=== PATIENT | female | born 1940 | race Caucasian/White ===

== ENCOUNTER → 2017-06-24 | Outpatient (CLI) | payer MEDICARE | END | disposition home or self-care (01) | LOC: PCVCCLINIC 14:24 | PROVIDERS: ATTEND Internal Medicine Cardiovascular Disease | DX: I10 Essential (primary) hypertension (principal); E78.00 Pure hypercholesterolemia, unspecified; R09.89 Other specified symptoms and signs involving the circulatory and respiratory systems; R01.1 Cardiac murmur, unspecified; R93.1 Abnormal findings on diagnostic imaging of heart and coronary circulation; Z87.891 Personal history of nicotine dependence; Z79.82 Long term (current) use of aspirin; Z79.899 Other long term (current) drug therapy | CPT/HCPCS: 80061; 93005; G0463 ==

== ENCOUNTER → 2017-07-24 | Outpatient (CLI) | payer MEDICARE | END | disposition home or self-care (01) | LOC: PCVCIMAG 13:22 | DX: I65.23 Occlusion and stenosis of bilateral carotid arteries (principal); I10 Essential (primary) hypertension; E83.59 Other disorders of calcium metabolism; R01.1 Cardiac murmur, unspecified; I08.3 Combined rheumatic disorders of mitral, aortic and tricuspid valves; R09.89 Other specified symptoms and signs involving the circulatory and respiratory systems | CPT/HCPCS: 93306; 93351; 93880 ==

== ENCOUNTER → 2018-04-27 | Outpatient (CLI) | payer MEDICARE ==
--- NOTE | 2018-04-27 14:10 | PCVCIMAG ---
EXAM: BILATERAL CAROTID DUPLEX INDICATION: Carotid Occlusive Disease. FINDINGS: Doppler Measurements (centimeters per second): RIGHT: Peak CCA-82, Peak ECA-129, Diastolic ICA-32, Peak ICA-153, ICA/CCA Ratio-1.9. LEFT: Peak CCA-102, Peak ECA-167, Diastolic ICA-25, Peak ICA-167, ICA/CCA Ratio-1.6. RIGHT CAROTID: The carotid bulb has moderate plaque. The proximal internal carotid artery shows 50% stenosis. The common carotid artery shows no significant stenosis. The external carotid artery shows no significant stenosis. LEFT CAROTID: The carotid bulb has moderate plaque. The proximal internal carotid artery shows 50-60% stenosis. The common carotid artery shows 50% stenosis distally. The external carotid artery shows 50% stenosis. Antegrade flow in both vertebral arteries. IMPRESSION: 50% stenosis of the right internal carotid artery with moderate plaque. 50-60% stenosis of the left internal carotid artery with moderate plaque. 50% stenosis distal left common carotid artery. Little overall change since June 2017. LOC:[id number]
== END | disposition home or self-care (01) ==
LOC: PCVCIMAG 12:59
PROVIDERS: ATTEND Internal Medicine Cardiovascular Disease
DX: I65.23 Occlusion and stenosis of bilateral carotid arteries (principal); R09.89 Other specified symptoms and signs involving the circulatory and respiratory systems; I10 Essential (primary) hypertension; E78.5 Hyperlipidemia, unspecified; Z87.891 Personal history of nicotine dependence; Z79.82 Long term (current) use of aspirin
CPT/HCPCS: 80061; 93005; 93880; G0463

== ENCOUNTER → 2019-01-25 | Outpatient (CLI) | payer MEDICARE ==
--- NOTE | 2019-01-25 15:17 | PCVCIMAG ---
APPROVED REPORT Laterality: Bilateral Indications Stenosis Doppler Spectral Velocity Analysis PSV / EDVPSV / EDV ECA (R) 171 / 18 cm/sECA (L) 211 / 18 cm/s dICA (R) 67 / 17 cm/sdICA (L) 64 / 21 cm/s Karla (R) 91 / 22 cm/smICA (L) 74 / 22 cm/s pICA (R) 151 / 31 cm/spICA (L) 167 / 27 cm/s Bulb (R) 82 / 18 cm/sBulb (L) 178 / 29 cm/s dCCA (R) 88 / 16 cm/sdCCA (L) 187 / 41 cm/s mCCA (R) 79 / 16 cm/smCCA (L) 98 / 19 cm/s Vert (R) 66 / 14 cm/sVert (L) 68 / 16 cm/s ICA/CCA 1.72ICA/CCA 0.89 Findings The right carotid bulb has moderate calcified plaque. The right proximal internal carotid artery shows 50% stenosis. The right common carotid artery shows no significant stenosis. The right external carotid artery shows no significant stenosis. The left carotid bulb has moderate calcified plaque. The left proximal internal carotid artery shows 50-60% stenosis. The left distal common carotid artery shows 50-60% stenosis. The left external carotid artery shows >50% stenosis. Conclusion 1. Right internal carotid artery stenosis (50%) 2. Left distal common carotid artery stenosis (50-60%) 3. Left internal carotid artery stenosis (50-60%) 4. Antegrade vertebral flow Similar to a study dated April 27, 2018.
--- NOTE | 2019-01-25 15:27 | PCVCIMAG ---
APPROVED REPORT Study performed: 01/25/2019 14:06:53 Exam: Stress Echocardiogram Indication: elevated coronary calcium score, aortic stenosis, htn Patient Location: Echo lab Stress Nurse: Laurel Solorzano RN Status: routine Ht: 5 ft 2 in HR: 88 bpm BP: 136/74 mmHg Rhythm: NSR Procedure The patient underwent an Exercise Stress Test using the Yonathan Protocol. Blood pressure, heart rate, and EKG were monitored. An Echocardiogram was performed by traffic signal technician in four stages in quad fashion. At peak stress, four selected images were obtained and placed side by side with resting images for comparison. Stress Test Details Stress Test: Exercise stress testing was performed using a Yonathan protocol. HR Resting HR: 88 bpmMax Heart Rate (APMHR): 141 bpm Max HR Achieved: 146 bpmTarget HR (85% APMHR): 119 bpm % of APMHR: 103 Recovery HR: 96 bpm HR response to stress: Normal HR response to stress BP Resting BP: 136/74 mmHg Max BP: 168/70 mmHg Recovery BP: 120/64 mmHg BP response to stress: Normal blood pressure response to stress. ECG Resting ECG: Sinus Rhythm non-specifc T wave abnormality Stress ECG: Sinus Rhythm ST Change: Eqivocally ischemic Arrhythmia: None Recovery ECG: Sinus Rhythm, nonspecific ST-T abnormalities Recovery ST Change: Eqivocally ischemic Recovery Arrhythmia: PVCs Clinical Reason for Termination: Maximal effort, Dyspnea, hip pain Stress Symptoms: hip pain Exercise duration: 6 min sec Highest Stage Achieved: Stage 2: 2.5 mph at 12% grade. Exercise capacity: 7 METs Overall Exercise Capacity for Age: Normal Scale: Active Angina Score: None Pre-Stress Echo The resting Echocardiogram showed normal left ventricular contractility with an estimated Ejection Fraction of about >55%. Normal wall motion in all segments on baseline images. Post-Stress Echo The stress Echocardiogram showed normal left ventricular contractility with an estimated Ejection Fraction of about 65%. Normal augmentation of wall motion in all segments on post stress images. Clinical No clinical evidence for ischemia. ECG is slightly abnormal, not supported by echocardiogram imaging. Conclusion Clinical Response: Non-ischemic Exercise Capacity: Average Stress ECG Response: Equivocal ischemic Stress Echo Images: Non-ischemic The left ventricle is normal in size and wall thickness in both the rest and stress images. Mild aortic stenosis with moderately calcified leaflets. MAGDALENO is 1.4 cm2 with mean gradient of 20 mmHg and peak gradient of 36 mmHg. Other Information Study Quality: Adequate <Conclusion> The left ventricle is normal in size and wall thickness in both the rest and stress images. Mild aortic stenosis with moderately calcified leaflets. MAGDALENO is 1.4 cm2 with mean gradient of 20 mmHg and peak gradient of 36 mmHg.
== END | disposition home or self-care (01) ==
LOC: PCVCIMAG 13:29
PROVIDERS: ATTEND Internal Medicine Cardiovascular Disease
DX: I65.23 Occlusion and stenosis of bilateral carotid arteries (principal); I25.10 Atherosclerotic heart disease of native coronary artery without angina pectoris; R07.9 Chest pain, unspecified; R06.02 Shortness of breath; R93.1 Abnormal findings on diagnostic imaging of heart and coronary circulation; I35.0 Nonrheumatic aortic (valve) stenosis; E78.00 Pure hypercholesterolemia, unspecified; I10 Essential (primary) hypertension; R01.1 Cardiac murmur, unspecified; E78.5 Hyperlipidemia, unspecified; Z87.891 Personal history of nicotine dependence; Z79.82 Long term (current) use of aspirin
CPT/HCPCS: 93005; 93325; 93351; 93880; G0463